=== PATIENT | male | born 1945 | race Caucasian/White ===

== ENCOUNTER 2018-10-20 11:09 | Inpatient (IN) ==
[~2018-10-20 11:09] MED LIST: Vancomycin 1,000 MG, Sodium Chloride IRRigation 1,000 ML IR ONE
[2018-10-20] MEDS ORDERED: Famotidine 20 MG/2 ML VIAL IVP ONE (11:29)
[2018-10-20] MEDS ORDERED: Acetaminophen IV 1,000 MG/100 ML INFUS..BTL IVPB ONE (11:29)
[2018-10-20] MEDS ORDERED: Ringers Solution, Lactated 1,000 ML IVC SCH ×2 (11:30→12:45)
--- NOTE | 2018-10-20 11:43 | Anesthesia Evaluation PreOp ---
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 (LE Weakness) Other Medical History: Denies Any Significant HX Anesthesia History: No Prior Anesthetic Complications Alcohol Use: none Drug use: none Medications and Allergies Aspirin 81 mg PO DAILY 02/10/15 [History] Clopidogrel [Plavix] 75 mg PO DAILY 02/10/15 [History] Lisinopril [Zestril] 10 mg PO DAILY 02/10/15 [History] Sertraline [Zoloft] 10 mg PO DAILY 02/10/15 [History] Simvastatin [Zocor] 20 mg PO DAILY 02/10/15 [History] Ipratropium/Albuterol Neb [Duoneb] 3 ml IH Q6HR PRN 09/30/18 [History] Loratadine/Pseudophed (12 HR) [Claritin D (12HR)] 1 each PO BID #24 tab.er.12h 09/30/18 [Rx] Metoprolol [Lopressor] 12.5 mg PO BID 09/30/18 [History] cephALEXin [Keflex] 500 mg PO QID #40 capsule 09/30/18 [Rx] Allergy/AdvReac Type Severity Reaction Status Date / Time codeine AdvReac Vomiting Verified 09/30/18 09:21 - Meds/Allergy Pre-op Review Medications Reviewed: Yes Allergies Reviewed: Yes Beta Blockers on Current Med List: Yes (Metioprolol this am) Anesthesia Results - Labs Laboratory Tests 10/19/18 10/19/18 10/19/18 09:04 09:04 09:04 Hgb 14.9 Hct 45.9 Plt Count 200 PT 11.5 INR 1.0 APTT 30.4 Sodium 141 Potassium 4.3 BUN 18 Creatinine 0.89 - Imaging EKG: report reviewed (SR) Additional studies: 2016 ECHO EF 60%, Stress Test 2-2018 negative for ischemia EF 67% Anesthesia Exam O2 Sat Height 1.78 m Weight 101.605 kg O2 Sat by Pulse Oximetry 95 Vital Signs Temp Pulse Resp BP Pulse Ox 97.4 F L 53 18 169/86 95 10/20/18 11:27 10/20/18 11:27 10/20/18 11:27 10/20/18 11:27 10/20/18 11:27 Height: 5'10 Weight: 224 lbs NPO (# of Hours): MN Pain Scale: 0 - HEENT Pupil (Motor): Pupils equal, EOMI Mallampati: III Denture Type: Upper: Complete (dentures) Oral Opening: Less than or equal to 3 - 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
[2018-10-20] MEDS ORDERED: Albuterol 2.5 MG/3 ML NEBULIZER IH ONE (12:40)
[2018-10-20] MEDS ORDERED: CeFAZolin Syr 2,000MG/20 ML 2,000 MG/20 ML SYRINGE IVPB ONE (12:40)
[2018-10-20] MEDS ORDERED: Lidocaine -MPF 2% 2 ML VIAL ONE ×2 (12:48→14:12)
[2018-10-20] MEDS ORDERED: *HR* Midazolam HCl 2 MG/2 ML VIAL ONE (12:48)
[2018-10-20] MEDS ORDERED: Neostigmine Methylsulfate 3 MG/3 ML SYRINGE ONE (12:48)
[2018-10-20] MEDS ORDERED: Ondansetron 4 MG/2 ML VIAL ONE ×2 (12:48→14:14)
[2018-10-20] MEDS ORDERED: Dexamethasone 4 MG/ML VIAL ONE (12:48)
[2018-10-20] MEDS ORDERED: *HR* FentaNYL (PF) 100 MCG/2 ML VIAL ONE (12:48)
[2018-10-20] MEDS ORDERED: *HR* Rocuronium Bromide 50 MG/5 ML VIAL ONE ×2 (12:48→14:16)
[2018-10-20] MEDS ORDERED: *HR* Propofol 200 MG/20 ML VIAL IVP ONE (12:49)
[2018-10-20] MEDS ORDERED: Lidocaine HCL 4 ML Topical Solution (Laryng-O-Jet Kit Sterile Pak) TP ONE ×2 (12:49→14:23)
--- NOTE | 2018-10-20 13:14 | History & Physical Report ---
Date of Encounter: 10/20/18 Time of Encounter: 12:45 24 Hour HP Update - Instructions Instructions: If the History and Physical is less than 30 days old and was completed prior to A.M. admission and or procedure and has NOT been updated on calendar day of procedure please complete this update prior to performing procedure. - Update Patient reports changes in Medical Condition: No Changes in examination, assessment, or condition: No Changes in Medication: No Preop tests/diagnostics Reviewed: Yes Surgery Remains Indicated: Yes Consent for Planned Operative Procedure(s) Verified: Yes - Pre-Operative Checklist Preoperative Checklist Indicated: Yes Prophylactic Antibiotic Ordered: Yes (vancomycin due to risk of MRSA) Home Medications Include Beta Jonathan: Yes Beta Jonathan Taken Today (Day of Surgery): Yes Beta Jonathan Taken Yesterday (Day Prior to Surgery): Yes Is VTE Prophylaxis Indicated?: Yes
[2018-10-20] MEDS ORDERED: *HR* Phenylephrine 10 MG/ML VIAL ONE (14:02)
[2018-10-20] MEDS ORDERED: *HR* Remifentanil 2 MG VIAL IVP ONE (14:02)
--- NOTE | 2018-10-20 14:12 | Anesthesia Procedures ---
Date of Encounter: 10/20/18 Time of Encounter: 13:46 Procedures: Anesthesia - Arterial Line Consent obtained: written consent Time out performed: Yes Sedation: Versed (mg): 1 Sedation: Fentanyl (mcg): 50 Supplemental Oxygen via Nasal Cannula (L/min): 2 Local Anesthetic: Lidocaine 1% Amount of Anesthetic used (mls): 0.5 Size (Gauge): 22 Length (inches): 1 3/4 Technique Used: direct puncture technique Post-Procedure: line taped into place Patient tolerated procedure: well Complications: none Site: Radial L Vitals: Vital Signs/O2 Sat/Glucose, Most Recent Temp Pulse Resp BP Pulse Ox 97.4 F L 55 17 135/81 95 10/20/18 11:27 10/20/18 14:07 10/20/18 14:07 10/20/18 14:07 10/20/18 14:07 Comments: Patient tolerated well.
[2018-10-20] MEDS ORDERED: *HR* Succinylcholine 200 MG/10 ML VIAL IVP ONE (14:16)
[2018-10-20] MEDS ORDERED: Bupivacaine-MPF 0.25% 10 ML VIAL ONE (14:18)
[2018-10-20] MEDS ORDERED: Protamine Sulfate 50 MG/5 ML VIAL IVP ONE (14:18)
[2018-10-20] MEDS ORDERED: Heparin 1,000 UNITS/500 mL 500 ML ONE (14:18)
[2018-10-20] MEDS ORDERED: *HR* Heparin 5,000 UNIT/ML VIAL ONE (14:19)
[2018-10-20] MEDS ORDERED: EPHEDrine 50 MG/ML VIAL ONE (15:19)
[2018-10-20] MEDS ORDERED: Calcium Gluconate 1,000 MG/10 ML VIAL ONE (15:30)
[2018-10-20] MEDS ORDERED: *HR* Remifentanil 1 MG VIAL IVP ONE (17:16)
--- NOTE | 2018-10-20 18:57 | Operative Note ---
Date of procedure: 10/20/18 Pre-op diagnosis: Symptomatic 80-99% Left internal carotid artery stenosis Post-op diagnosis: same Complications: None Anesthesia: MIRIAMA Surgeon: Kash Walters Was there an senior assistant manager present: No Estimated blood loss (cc): 50 Specimen: Left carotid plaque Condition: stable Disposition: PACU Procedure in Detail: Indications: The patient is a 73-year-old male with a presented with recurrent left hemispheric transient ischemic attacks. The patient was found have an 80- 99% left internal carotid artery stenosis. A left carotid endarterectomy was recommended to reduce his risk of cerebrovascular accident. Procedure: The patient was identified in the preoperative area. The risks, benefits, and alternatives of the procedure were discussed and all questions were answered. The patient was then taken to the operating room and placed in supine position on the operating table. After the induction of general endotracheal anesthesia, the patient was cleaned and draped in normal sterile fashion. A longitudinal incision was made anterior to the left sternocleidomastoid muscle. Hemostasis was obtained via electrocautery. Through a process of blunt, sharp, and electrocautery dissection, the platysma was traversed and the jugular vein was identified. The facial vein was dissected, clamped, divided and ligated with a 2-0 silk suture ligature. The jugular vein was retracted to expose the carotid bifurcation. The patient received 3000 units of heparin intravenously at this time. Proximal dissection of the common and external carotid arteries were performed circumferentially. Dissection of the internal carotid was performed circumferentially. Vessels loops were passed around the internal and external carotid and an umbilical tape was passed from the common carotid artery. The patient received an additional 2000 units of heparin intravenously. Additional heparin was given throughout the procedure to maintain adequate anticoagulation. After waiting adequate time for the heparin to circulate, the vessels were occluded and a longitudinal arteriotomy was made into the common carotid artery and extended into the internal carotid beyond the plaque. The plaque was long, extended distally and was heavily calcified. Vigorous pulsatile retrograde flow was noted from the internal carotid artery upon release of the vessel loop. Due to the rapid pulsatile retrograde flow, no shunt was placed. A dental [place] was then used to perform a standard endarterectomy. Proximal and distal endpoints were inspected. No elevated flaps were noted. A Hemashield patch was cut to fit the defect and sutured in place with running 6-0 Prolene. Prior to completing the closure, each vessel was flushed and then reoccluded. Heparinized saline was infused into the lumen. The patch was completed. Flow was restored in the external carotid artery, followed the common carotid artery, lastly the internal carotid artery was opened. A low resistance arterialized signal was present within the internal carotid artery beyond the patch. Thrombin and Gelfoam were used to aid in hemostasis. Meticulous hemostasis was obtained throughout the wound with electrocautery. Platelet rich and platelet poor plasma were infused into the wounds. The sternocleidomastoid was reapproximated with interrupted 3-0 Vicryl. Platelet rich and platelet poor plasma were infused into the wound. A TLS drain was brought through a separate stab incision and sutured in place with 0 silk suture. The platysma was reapproximated with running 3-0 Vicryl. Local anesthetic was infused in the skin. A 3-0 Monocryl was used to reapproximate the skin. A sterile dressing was applied. The patient was extubated, taken to the recovery room in stable condition.
--- NOTE | 2018-10-20 19:07 | Anesthesia Evaluation Post Op ---
Date of Encounter: 10/20/18 Time of Encounter: 19:06 - Discharge PostOp Status: Transfer Patient to floor (Patient's vital signs have been reviewed. Patient is stable postoperatively and has adequately recovered from anesthesia. Patient is determined to have stable airway patency and respiratory function including respiratory rate and oxygen saturation. Patient has a stable heart rate, blood pressure and adequate hydration. Patients mental status is acceptable. Patients temperature is appropriate. Pain and nausea are adequately controlled)
[2018-10-20] MEDS ORDERED: Acetaminophen 325 MG TABLET PO PRN (21:01)
[2018-10-20] MEDS ORDERED: *HR* Labetalol 20 MG/4 ML SYRINGE IVP PRN (21:01)
[2018-10-20] MEDS ORDERED: Naloxone 0.4 MG/ML INJ IVP PRN (21:01)
[2018-10-20] MEDS ORDERED: *HR* Promethazine 25 MG/ML VIAL IVP PRN (21:01)
[2018-10-20] MEDS ORDERED: *HR* OxyCODONE Immed Rel 5 MG TABLET PO PRN (21:01)
[2018-10-20] MEDS ORDERED: 0.9 % Sodium Chloride 1,000 ML IVC SCH (21:01)
[2018-10-20] MEDS: *HR* Metoprolol 5 MG/5 ML VIAL IVP SCH (21:57)
[2018-10-20] MEDS: *HR* HYDROcodone/Acet 5/325 mg TABLET PO PRN (22:14)
[2018-10-20] MEDS: Budesonide/Formoterol 160/4.5 1 PUFF INH IH SCH (22:44)
[2018-10-21] MEDS: *HR* Metoprolol 5 MG/5 ML VIAL IVP SCH ×2 (03:23→08:31)
[2018-10-21] MEDS ORDERED: *HR* Heparin 5,000 UNIT/ML VIAL SQ SCH ×2 (06:00)
--- NOTE | 2018-10-21 06:21 | Discharge Summary ---
Orders not resulted at time of discharge: Pending orders 10/20/18 18:44 Surgical Pathology [PTH] Routine Date of Encounter: 10/21/18 Time of Encounter: 07:25 - Discharge Diagnosis (1) Carotid stenosis, left Priority: Primary Status: Chronic Comments: Patient is postoperative day #1 after a left carotid endarterectomy. He is tolerating a diet. He has no hematoma. His incision is healing well. He has no neurologic deficits. He will be discharged today. (2) CAD in [place] artery Priority: Secondary Status: Chronic (3) Mixed hyperlipidemia Priority: Secondary Status: Chronic (4) Essential hypertension Priority: Secondary Status: Chronic - Hospital Course Hospital course: Mr. Chino is a 73 year old male with history of hypertension hyperlipidemia and coronary artery disease. He was found have symptomatic left internal carotid artery stenosis manifested by multiple transient ischemic attacks. He was admitted and underwent a left carotid endarterectomy. He tolerated the procedure well. On postoperative day #1 he was alert no neurologic deficits. He is tolerating a diet. His incision was healing well. He was discharged in stable condition without complication. - Time Spent with Patient Total time spent providing and/or coordinating discharge services: - Discharge Medications Prescriptions: New HYDROcodone/Acet 5/325 mg [Ullin 5-325 mg] 1 tab PO Q6HR PRN 5 Days #20 tablet PRN Reason: postoperative pain Continued Simvastatin [Zocor] 1 tab PO HS Sertraline [Zoloft] 150 mg PO DAILY Budesonide/Formoterol 160/4.5 [Symbicort 160/4.5] 2 puff IH BID Albuterol Sulfate [Ventolin Hfa] 2 puff IH Q6H PRN PRN Reason: Shortness Of Breath Clopidogrel [Plavix] 75 mg PO DAILY Aspirin 81 mg PO DAILY Metoprolol [Lopressor] 12.5 mg PO BID Home Medications: Aspirin 81 mg PO DAILY 02/10/15 [History] Clopidogrel [Plavix] 75 mg PO DAILY 02/10/15 [History] Metoprolol [Lopressor] 12.5 mg PO BID 09/30/18 [History] Albuterol Sulfate [Ventolin Hfa] 2 puff IH Q6H PRN 10/20/18 [History] Budesonide/Formoterol 160/4.5 [Symbicort 160/4.5] 2 puff IH BID 10/20/18 [History] Sertraline [Zoloft] 150 mg PO DAILY 10/20/18 [History] Simvastatin [Zocor] 1 tab PO HS 10/20/18 [History] HYDROcodone/Acet 5/325 mg [Ullin 5-325 mg] 1 tab PO Q6HR PRN 5 Days #20 tablet 10/21/18 [Rx] Allergies/Adverse Reactions: Allergy/AdvReac Type Severity Reaction Status Date / Time codeine AdvReac Vomiting Verified 10/20/18 12:05 Date of admission: 10/20/18 19:56 Primary care physician: Varun Olvera DO Procedure(s) Performed: Left carotid endarterectomy Discharging clinician: Kash Walters Anticipated date of discharge: 10/21/18 Exam Vital Signs, Last 4 Hours Temp Pulse Resp BP Pulse Ox 10/21/18 03:39 97.9 F 56 18 98/48 95 General: Present: Conversant HEENT: Present: Pupils equal Neck: Present: Other (Incision clean, dry and intact without erythema or drainage, no hematoma) Cardiac: Present: Reg Rate and Rhythm Lungs: Present: Normal Breath Sounds Neuro: Present: Alert and responsive, No focal deficits noted Abdomen: Present: Soft Vascular: Present: Normal capillary refill Skin: Present: No rashes noted on visualized skin - Patient Status Disposition: Home, Self-Care Condition: Good Functional capacity at discharge: independent ambulation Overall status at discharge: patient is back to baseline - Discharge Instructions Follow Up With: Raina Cabral CNP [Advanced Practice Nurse] - 10/26/18 11:00 am Kash Walters MD [Partnered Physician] - 11/18/18 1:00 pm Additional Instructions: May remove bandage and shower on 10/22/2018. Wash wound gently and pat to dry. No driving for [address] Walters at [phone] with questions or concerns.
[2018-10-21] MEDS: Budesonide/Formoterol 160/4.5 1 PUFF INH IH SCH (07:55)
[2018-10-21] MEDS: *HR* HYDROcodone/Acet 5/325 mg TABLET PO PRN (08:30)
[2018-10-21] MEDS ORDERED: Aspirin 81 MG TAB.CHEW PO SCH (09:00)
[2018-10-21 11:29] VITALS: BP 124/67
== END 2018-10-21 12:43 | disposition home or self-care (01) | DRG 37 ==
LOC: SAMDAY 11:09 → 2NNU 19:56
PROVIDERS: ADMIT Surgery; ATTEND Surgery

== ENCOUNTER 2021-03-08 21:18 | Inpatient (IN) ==
[2021-03-09] MEDS ORDERED: Ondansetron 4 MG/2 ML VIAL IVP PRN (00:36)
[2021-03-09] MEDS ORDERED: Naloxone 0.4 MG/ML INJ IVP PRN (00:36)
[2021-03-09] MEDS ORDERED: Perflutren Lipid Microsphere 1.3 ML in 0.9 % Sodium Chloride 8.7 ML IVP PRN (00:40)
[2021-03-09] MEDS ORDERED: *HR* Heparin 5,000 UNIT/ML VIAL IVP PRN ×2 (01:21)
[2021-03-09] MEDS ORDERED: Heparin 25,000UNIT/250ML 1/2NS 25,000 UNIT/250 ML IV.SOLN IVC SCH (01:30)
[2021-03-09 01:48] LABS: VBG HCO3 27 mEq/L (21-27); VBG PCO2 39 mmHg (41-51); VBG PH 7.44 pH Units (7.32-7.42); VBG PO2 117 mmHg (25-50)
[2021-03-09 01:49] LABS: Basophils % 0.1 %; Hematocrit 37.7 % (37.5-50.1); Hemoglobin 12.1 g/dL (12.9-16.9); Immature Granulocytes % 0.6 % (0-4); Lymphocytes # 0.6 K/mcL (0.6-4.6); Mean Corpuscular HGB Conc 32.1 g/dL (31.6-35.5); Mean Corpuscular Hemoglobin 28.3 pg (28.0-33.3); Mean Corpuscular Volume 88.1 fL (83.0-100.0); Mean Platelet Volume 10.1 fL (9.4-12.4); Monocytes # 0.3 K/mcL (0.0-1.3); Monocytes % 2.5 %; Neutrophils # 10.4 K/mcL (1.6-8.9); Platelet Count 215 K/mcL (140-400); Red Blood Count 4.28 M/mcL (4.19-5.50); Red Cell Distribution Width 13.7 % (11.5-14.5); Segmented Neutrophils % 91.8 %; White Blood Count 11.3 K/mcL (4.3-11.1)
[2021-03-09 01:56] LABS: Heparin anti-factor XA UFH 0.76 IU/mL (0.30-0.70); INR 1.3; Prothrombin Time 14.3 Seconds (9.4-12.1)
[2021-03-09 02:22] LABS: Troponin I 0.09 ng/mL (< 0.04)
[2021-03-09 02:38] LABS: BUN/Creatinine Ratio 20 (6-26); Blood Urea Nitrogen 19 mg/dL (8-23); C-Reactive Protein 233 mg/L (Less than 10); Calcium 8.2 mg/dL (8.6-10.3); Carbon Dioxide 25 mEq/L (23-29); Chloride 109 mEq/L (98-107); Cholesterol 62 mg/dL (< 200); Creatine Kinase 49 Units/L (30-223); Glucose 172 mg/dL (70-105); HDL Cholesterol 21 mg/dL (40-59); LDL Cholesterol,Calculated 30 mg/dL (< 100); Lactate Dehydrogenase 266 Units/L (140-271); Magnesium 1.9 mg/dL (1.6-2.6); Osmolality,Calculated 296 (280-300); Phosphorous 3.7 mg/dL (2.7-4.5); Potassium 3.4 mEq/L (3.5-5.1); Sodium 140 mEq/L (136-145); Thyroid Stimulating Hormone 0.624 mcIU/mL (0.340-5.600); Triglycerides 57 mg/dL (< 150); eGFR For African Americans > 60 (> 60); eGFR For Non-African Americans > 60 (> 60)
[2021-03-09 02:39] LABS: D-Dimer 611 ng/mLFEU (0-500); Fibrinogen 711 mg/dL (169-393)
[2021-03-09 02:57] LABS: Ferritin 148 ng/mL (20-250)
[2021-03-09] MEDS ORDERED: *HR* Metoprolol 5 MG/5 ML VIAL IVP SCH (06:00)
[2021-03-09 08:28] LABS: Bilirubin,Urine Negative (Negative); Blood,Urine Moderate (Negative); Clarity,Urine Clear (Clear); Color,Urine Yellow (Yellow); Glucose,Urine (UA) Normal (Normal); Hyaline Casts,Urine Moderate per lpf (None Seen); Ketones,Urine Negative (Negative); Leukocyte Esterase,Urine Negative (Negative); Mucus,Urine Few per lpf (None-Few); Nitrite,Urine Negative (Negative); Protein,Urine 70 mg/dL (Neg-Trace); RBC,Urine 50-100 per hpf (0-3); Specific Gravity,Urine 1.022 (1.010-1.025); Urobilinogen,Urine Normal (Normal); WBC,Urine 0-3 per hpf (0-3)
[2021-03-09] MEDS: Azithromycin 500 MG in 0.9 % Sodium Chloride 250 ML IVPB SCH (08:35)
[2021-03-09] MEDS: cefTRIAXone 1,000 MG in 0.9 % Sodium Chloride Mini Bag 100 ML IVPB SCH (08:38)
[2021-03-09] MEDS ORDERED: Saliva Stimulant 44.3ml BOTTLE PO PRN (10:29)
[2021-03-09] MEDS: Dexamethasone Sodium Phos/PF 10 MG/ML VIAL IVP SCH (11:12)
[2021-03-09] MEDS: Pantoprazole 40 MG VIAL IVP SCH (12:36)
[2021-03-09] MEDS: Acetaminophen 325 MG TABLET PO PRN (16:29)
[2021-03-10] MEDS: Acetaminophen 325 MG TABLET PO PRN ×2 (00:02→12:57)
[2021-03-10] MEDS ORDERED: Menthol 1 EACH LOZENGE PO PRN (03:16)
[2021-03-10 06:41] LABS: Basophils % 0.1 %; Hematocrit 35.7 % (37.5-50.1); Hemoglobin 11.3 g/dL (12.9-16.9); Immature Granulocytes % 0.7 % (0-4); Lymphocytes # 0.8 K/mcL (0.6-4.6); Lymphocytes % 5.1 %; Mean Corpuscular HGB Conc 31.7 g/dL (31.6-35.5); Mean Corpuscular Hemoglobin 27.8 pg (28.0-33.3); Mean Corpuscular Volume 87.9 fL (83.0-100.0); Mean Platelet Volume 10.4 fL (9.4-12.4); Monocytes # 0.9 K/mcL (0.0-1.3); Monocytes % 5.1 %; Neutrophils # 14.8 K/mcL (1.6-8.9); Platelet Count 252 K/mcL (140-400); Red Blood Count 4.06 M/mcL (4.19-5.50); Red Cell Distribution Width 13.9 % (11.5-14.5); White Blood Count 16.6 K/mcL (4.3-11.1)
[2021-03-10 06:46] LABS: BUN/Creatinine Ratio 37 (6-26); Blood Urea Nitrogen 35 mg/dL (8-23); Calcium 8.5 mg/dL (8.6-10.3); Carbon Dioxide 29 mEq/L (23-29); Chloride 107 mEq/L (98-107); Glucose 130 mg/dL (70-105); Osmolality,Calculated 302 (280-300); Sodium 141 mEq/L (136-145); eGFR For African Americans > 60 (> 60); eGFR For Non-African Americans > 60 (> 60)
[2021-03-10] MEDS: Dexamethasone Sodium Phos/PF 10 MG/ML VIAL IVP SCH (08:12)
[2021-03-10] MEDS: Pantoprazole 40 MG VIAL IVP SCH (08:12)
[2021-03-10] MEDS: Azithromycin 500 MG in 0.9 % Sodium Chloride 250 ML IVPB SCH (08:13)
[2021-03-10] MEDS: cefTRIAXone 1,000 MG in 0.9 % Sodium Chloride Mini Bag 100 ML IVPB SCH (08:13)
[2021-03-11] MEDS: Acetaminophen 325 MG TABLET PO PRN (00:42)
[2021-03-11 06:31] LABS: Basophils % 0.1 %; Hematocrit 36.6 % (37.5-50.1); Hemoglobin 11.8 g/dL (12.9-16.9); Immature Granulocytes % 0.9 % (0-4); Lymphocytes # 1.1 K/mcL (0.6-4.6); Mean Corpuscular HGB Conc 32.2 g/dL (31.6-35.5); Mean Corpuscular Volume 86.9 fL (83.0-100.0); Mean Platelet Volume 10.3 fL (9.4-12.4); Monocytes % 5.5 %; Neutrophils # 16.2 K/mcL (1.6-8.9); Platelet Count 287 K/mcL (140-400); Red Blood Count 4.21 M/mcL (4.19-5.50); Red Cell Distribution Width 14.1 % (11.5-14.5); Segmented Neutrophils % 87.5 %; White Blood Count 18.4 K/mcL (4.3-11.1)
[2021-03-11 06:46] LABS: BUN/Creatinine Ratio 39 (6-26); Blood Urea Nitrogen 31 mg/dL (8-23); Calcium 8.4 mg/dL (8.6-10.3); Carbon Dioxide 28 mEq/L (23-29); Chloride 108 mEq/L (98-107); Glucose 110 mg/dL (70-105); Osmolality,Calculated 301 (280-300); Sodium 142 mEq/L (136-145); eGFR For African Americans > 60 (> 60); eGFR For Non-African Americans > 60 (> 60)
[2021-03-11] MEDS: cefTRIAXone 1,000 MG in 0.9 % Sodium Chloride Mini Bag 100 ML IVPB SCH (08:09)
[2021-03-11] MEDS: Dexamethasone Sodium Phos/PF 10 MG/ML VIAL IVP SCH (08:09)
[2021-03-11] MEDS: Azithromycin 500 MG in 0.9 % Sodium Chloride 250 ML IVPB SCH (08:10)
[2021-03-11] MEDS: Pantoprazole 40 MG VIAL IVP SCH (08:10)
[2021-03-11] MEDS ORDERED: Ipratropium 1 PUFF INHALER IH ONE (11:44)
[2021-03-11] MEDS: Ipratropium 1 PUFF INHALER IH SCH ×4 (11:50→23:31)
[2021-03-11] MEDS: Dexmedetomidine HCl 400 MCG/100 ML MLS IVC SCH (12:58)
[2021-03-11 14:30] LABS: Fibrinogen 688 mg/dL (169-393)
[2021-03-11 14:31] LABS: D-Dimer 3821 ng/mLFEU (0-500)
[2021-03-11 16:23] LABS: Bilirubin,Urine Negative (Negative); Blood,Urine Moderate (Negative); Clarity,Urine Clear (Clear); Color,Urine Yellow (Yellow); Glucose,Urine (UA) Normal (Normal); Ketones,Urine Negative (Negative); Leukocyte Esterase,Urine Negative (Negative); Mucus,Urine Few per lpf (None-Few); Nitrite,Urine Negative (Negative); Protein,Urine 100 mg/dL (Neg-Trace); RBC,Urine TNTC per hpf (0-3); Specific Gravity,Urine > 1.030 (1.010-1.025); Squamous Epithelial Cell,Urine Few per hpf (None-Few); Urobilinogen,Urine Normal (Normal)
[2021-03-11] MEDS: *HR* Heparin 5,000 UNIT/ML VIAL SQ SCH (21:31)
[2021-03-12] MEDS: Ipratropium 1 PUFF INHALER IH SCH ×6 (03:43→23:57)
[2021-03-12] MEDS: *HR* Heparin 5,000 UNIT/ML VIAL SQ SCH ×3 (04:39→20:21)
[2021-03-12] MEDS ORDERED: Saline Nasal Spray 44 ML BOTTLE NS PRN (08:17)
[2021-03-12] MEDS: Dexmedetomidine HCl 400 MCG/100 ML MLS IVC SCH ×2 (08:20→18:06)
[2021-03-12] MEDS: Acetaminophen 325 MG TABLET PO PRN (08:46)
[2021-03-12] MEDS: Dexamethasone Sodium Phos/PF 10 MG/ML VIAL IVP SCH (08:47)
[2021-03-12] MEDS: cefTRIAXone 1,000 MG in 0.9 % Sodium Chloride Mini Bag 100 ML IVPB SCH (08:49)
[2021-03-12] MEDS: Pantoprazole 40 MG VIAL IVP SCH (09:01)
[2021-03-12 09:11] LABS: Basophils % 0.1 %; Hematocrit 36.8 % (37.5-50.1); Hemoglobin 11.7 g/dL (12.9-16.9); Immature Granulocytes % 1.4 % (0-4); Lymphocytes % 7.1 %; Mean Corpuscular HGB Conc 31.8 g/dL (31.6-35.5); Mean Corpuscular Hemoglobin 28.1 pg (28.0-33.3); Mean Corpuscular Volume 88.2 fL (83.0-100.0); Mean Platelet Volume 10.8 fL (9.4-12.4); Monocytes # 0.9 K/mcL (0.0-1.3); Monocytes % 6.7 %; Neutrophils # 11.8 K/mcL (1.6-8.9); Platelet Count 257 K/mcL (140-400); Red Blood Count 4.17 M/mcL (4.19-5.50); Red Cell Distribution Width 14.1 % (11.5-14.5); Segmented Neutrophils % 84.7 %; White Blood Count 13.9 K/mcL (4.3-11.1)
[2021-03-12 09:33] LABS: BUN/Creatinine Ratio 41 (6-26); Blood Urea Nitrogen 34 mg/dL (8-23); Calcium 8.4 mg/dL (8.6-10.3); Carbon Dioxide 27 mEq/L (23-29); Chloride 106 mEq/L (98-107); Glucose 105 mg/dL (70-105); Osmolality,Calculated 298 (280-300); Sodium 140 mEq/L (136-145); eGFR For African Americans > 60 (> 60); eGFR For Non-African Americans > 60 (> 60)
[2021-03-12] MEDS: Azithromycin 500 MG in 0.9 % Sodium Chloride 250 ML IVPB SCH (11:07)
[2021-03-12] MEDS ORDERED: Ketorolac 30 MG/ML VIAL IVP ONE (12:58)
[2021-03-13] MEDS: Dexmedetomidine HCl 400 MCG/100 ML MLS IVC SCH ×2 (03:47→13:28)
[2021-03-13] MEDS: Ipratropium 1 PUFF INHALER IH SCH ×6 (04:04→20:56)
[2021-03-13] MEDS: *HR* Heparin 5,000 UNIT/ML VIAL SQ SCH ×3 (05:30→20:45)
[2021-03-13 06:18] LABS: Basophils % 0.1 %; Hematocrit 36.6 % (37.5-50.1); Hemoglobin 11.8 g/dL (12.9-16.9); Immature Granulocytes % 1.7 % (0-4); Lymphocytes # 0.9 K/mcL (0.6-4.6); Lymphocytes % 6.3 %; Mean Corpuscular HGB Conc 32.2 g/dL (31.6-35.5); Mean Corpuscular Hemoglobin 28.4 pg (28.0-33.3); Mean Corpuscular Volume 88.2 fL (83.0-100.0); Mean Platelet Volume 10.7 fL (9.4-12.4); Neutrophils # 11.8 K/mcL (1.6-8.9); Platelet Count 257 K/mcL (140-400); Red Blood Count 4.15 M/mcL (4.19-5.50); Red Cell Distribution Width 13.6 % (11.5-14.5); Segmented Neutrophils % 84.9 %; White Blood Count 13.8 K/mcL (4.3-11.1)
[2021-03-13 06:56] LABS: BUN/Creatinine Ratio 37 (6-26); Blood Urea Nitrogen 30 mg/dL (8-23); Calcium 8.3 mg/dL (8.6-10.3); Carbon Dioxide 27 mEq/L (23-29); Chloride 107 mEq/L (98-107); Glucose 103 mg/dL (70-105); Osmolality,Calculated 296 (280-300); Potassium 4.1 mEq/L (3.5-5.1); Sodium 140 mEq/L (136-145); eGFR For African Americans > 60 (> 60); eGFR For Non-African Americans > 60 (> 60)
[2021-03-13] MEDS: Dexamethasone Sodium Phos/PF 10 MG/ML VIAL IVP SCH (09:51)
[2021-03-13] MEDS: Pantoprazole 40 MG VIAL IVP SCH (09:51)
[2021-03-13] MEDS: Azithromycin 500 MG in 0.9 % Sodium Chloride 250 ML IVPB SCH (09:52)
[2021-03-13] MEDS: cefTRIAXone 1,000 MG in 0.9 % Sodium Chloride Mini Bag 100 ML IVPB SCH (09:52)
[2021-03-13 22:19] LABS: Adenovirus Not Detected (Not Detect); Coronavirus 229E Not Detected (Not Detect); Coronavirus HKU1 Not Detected (Not Detect); Coronavirus NL63 Not Detected (Not Detect); Coronavirus OC43 Not Detected (Not Detect)
[2021-03-13 22:21] LABS: Bordetella Pertussis Not Detected (Not Detect); Chlamydophila pneumoniae Not Detected (Not Detect); Human Metapneumovirus Not Detected (Not Detect); Human Rhinovirus/Enterovirus Not Detected (Not Detect); Influenza A Subtype 2009 H1 Not Detected (Not Detect); Influenza B Not Detected (Not Detect); Mycoplasma pneumoniae Not Detected (Not Detect); Parainfluenza Virus 1 Not Detected (Not Detect); Parainfluenza Virus 2 Not Detected (Not Detect); Parainfluenza Virus 3 Not Detected (Not Detect); Parainfluenza Virus 4 Not Detected (Not Detect); Respiratory Syncytial Virus Not Detected (Not Detect); SARS-CoV-2 DETECTED (Not Detect)
[2021-03-14] MEDS: Artificial Tears SOLN 15 ML BOTTLE BOTH EYES SCH ×5 (00:08→21:51)
[2021-03-14] MEDS: Dexmedetomidine HCl 400 MCG/100 ML MLS IVC SCH ×3 (00:12→22:23)
[2021-03-14] MEDS: Ipratropium 1 PUFF INHALER IH SCH ×6 (00:23→20:22)
[2021-03-14 00:32] LABS: Basophils % 0.2 %; Hemoglobin 11.7 g/dL (12.9-16.9); Immature Granulocytes % 1.7 % (0-4); Lymphocytes # 0.7 K/mcL (0.6-4.6); Lymphocytes % 4.2 %; Mean Corpuscular HGB Conc 30.8 g/dL (31.6-35.5); Mean Corpuscular Hemoglobin 27.1 pg (28.0-33.3); Mean Platelet Volume 10.8 fL (9.4-12.4); Monocytes # 1.1 K/mcL (0.0-1.3); Monocytes % 6.8 %; Neutrophils # 14.1 K/mcL (1.6-8.9); Platelet Count 226 K/mcL (140-400); Red Blood Count 4.32 M/mcL (4.19-5.50); Red Cell Distribution Width 13.7 % (11.5-14.5); Segmented Neutrophils % 87.1 %; White Blood Count 16.2 K/mcL (4.3-11.1)
[2021-03-14 04:44] LABS: BUN/Creatinine Ratio 44 (6-26); Blood Urea Nitrogen 35 mg/dL (8-23); Calcium 8.5 mg/dL (8.6-10.3); Carbon Dioxide 23 mEq/L (23-29); Chloride 107 mEq/L (98-107); Glucose 106 mg/dL (70-105); Osmolality,Calculated 300 (280-300); Potassium 4.5 mEq/L (3.5-5.1); Sodium 141 mEq/L (136-145); eGFR For African Americans > 60 (> 60); eGFR For Non-African Americans > 60 (> 60)
[2021-03-14] MEDS: *HR* Heparin 5,000 UNIT/ML VIAL SQ SCH ×3 (05:40→21:50)
[2021-03-14] MEDS: cefTRIAXone 1,000 MG in 0.9 % Sodium Chloride Mini Bag 100 ML IVPB SCH (08:43)
[2021-03-14] MEDS: Dexamethasone Sodium Phos/PF 10 MG/ML VIAL IVP SCH (08:44)
[2021-03-14] MEDS: Azithromycin 500 MG in 0.9 % Sodium Chloride 250 ML IVPB SCH (08:44)
[2021-03-14] MEDS: Pantoprazole 40 MG VIAL IVP SCH (09:29)
[2021-03-15] MEDS: Ipratropium 1 PUFF INHALER IH SCH ×7 (00:01→23:59)
[2021-03-15 03:20] LABS: Basophils % 0.2 %; Hematocrit 33.4 % (37.5-50.1); Hemoglobin 10.7 g/dL (12.9-16.9); Immature Granulocytes % 2.2 % (0-4); Lymphocytes # 0.6 K/mcL (0.6-4.6); Lymphocytes % 4.1 %; Mean Corpuscular Hemoglobin 28.2 pg (28.0-33.3); Mean Corpuscular Volume 88.1 fL (83.0-100.0); Mean Platelet Volume 11.4 fL (9.4-12.4); Monocytes # 0.8 K/mcL (0.0-1.3); Monocytes % 5.6 %; Neutrophils # 13.1 K/mcL (1.6-8.9); Platelet Count 183 K/mcL (140-400); Red Blood Count 3.79 M/mcL (4.19-5.50); Red Cell Distribution Width 13.9 % (11.5-14.5); Segmented Neutrophils % 87.9 %; White Blood Count 14.9 K/mcL (4.3-11.1)
[2021-03-15 03:34] LABS: BUN/Creatinine Ratio 40 (6-26); Blood Urea Nitrogen 32 mg/dL (8-23); Calcium 8.1 mg/dL (8.6-10.3); Carbon Dioxide 28 mEq/L (23-29); Chloride 106 mEq/L (98-107); Glucose 127 mg/dL (70-105); Osmolality,Calculated 292 (280-300); Potassium 4.4 mEq/L (3.5-5.1); Sodium 137 mEq/L (136-145); eGFR For African Americans > 60 (> 60); eGFR For Non-African Americans > 60 (> 60)
[2021-03-15] MEDS: *HR* Heparin 5,000 UNIT/ML VIAL SQ SCH ×3 (05:38→20:52)
[2021-03-15] MEDS: Dexmedetomidine HCl 400 MCG/100 ML MLS IVC SCH ×2 (07:24→17:35)
[2021-03-15] MEDS: cefTRIAXone 1,000 MG in 0.9 % Sodium Chloride Mini Bag 100 ML IVPB SCH (08:02)
[2021-03-15] MEDS: Pantoprazole 40 MG VIAL IVP SCH (08:02)
[2021-03-15] MEDS: Azithromycin 500 MG in 0.9 % Sodium Chloride 250 ML IVPB SCH (08:03)
[2021-03-15] MEDS: Dexamethasone Sodium Phos/PF 10 MG/ML VIAL IVP SCH (08:05)
[2021-03-15] MEDS: Artificial Tears SOLN 15 ML BOTTLE BOTH EYES SCH ×4 (08:05→20:52)
[2021-03-16] MEDS: Dexmedetomidine HCl 400 MCG/100 ML MLS IVC SCH ×2 (02:37→12:46)
[2021-03-16] MEDS: Ipratropium 1 PUFF INHALER IH SCH ×6 (03:37→23:50)
[2021-03-16] MEDS: *HR* Heparin 5,000 UNIT/ML VIAL SQ SCH ×3 (04:55→21:38)
[2021-03-16 05:22] LABS: Basophils % 0.2 %; Eosinophils % 0.1 %; Hematocrit 34.9 % (37.5-50.1); Hemoglobin 11.2 g/dL (12.9-16.9); Immature Granulocytes % 2.6 % (0-4); Lymphocytes % 4.2 %; Mean Corpuscular HGB Conc 32.1 g/dL (31.6-35.5); Mean Corpuscular Hemoglobin 28.3 pg (28.0-33.3); Mean Corpuscular Volume 88.1 fL (83.0-100.0); Mean Platelet Volume 11.3 fL (9.4-12.4); Monocytes % 5.5 %; Platelet Count 181 K/mcL (140-400); Red Blood Count 3.96 M/mcL (4.19-5.50); Red Cell Distribution Width 13.9 % (11.5-14.5); Segmented Neutrophils % 87.4 %
[2021-03-16 05:23] LABS: Lymphocytes # 0.7 K/mcL (0.6-4.6); Monocytes # 0.9 K/mcL (0.0-1.3)
[2021-03-16 05:41] LABS: BUN/Creatinine Ratio 40 (6-26); Blood Urea Nitrogen 34 mg/dL (8-23); Calcium 8.4 mg/dL (8.6-10.3); Carbon Dioxide 28 mEq/L (23-29); Chloride 105 mEq/L (98-107); Glucose 99 mg/dL (70-105); Osmolality,Calculated 292 (280-300); Potassium 4.6 mEq/L (3.5-5.1); Sodium 137 mEq/L (136-145); eGFR For African Americans > 60 (> 60); eGFR For Non-African Americans > 60 (> 60)
[2021-03-16] MEDS: Dexamethasone Sodium Phos/PF 10 MG/ML VIAL IVP SCH (09:57)
[2021-03-16] MEDS: cefTRIAXone 1,000 MG in 0.9 % Sodium Chloride Mini Bag 100 ML IVPB SCH (09:58)
[2021-03-16] MEDS: Azithromycin 500 MG in 0.9 % Sodium Chloride 250 ML IVPB SCH (10:05)
[2021-03-16] MEDS: Pantoprazole 40 MG VIAL IVP SCH (10:05)
[2021-03-16] MEDS: Artificial Tears SOLN 15 ML BOTTLE BOTH EYES SCH ×4 (10:08→20:57)
[2021-03-16] MEDS: Acetaminophen 325 MG TABLET PO PRN (16:06)
[2021-03-17] MEDS: Dexmedetomidine HCl 400 MCG/100 ML MLS IVC SCH ×3 (00:40→21:00)
[2021-03-17 02:16] LABS: Basophils % 0.2 %; Hematocrit 34.5 % (37.5-50.1); Hemoglobin 10.7 g/dL (12.9-16.9); Lymphocytes # 0.5 K/mcL (0.6-4.6); Lymphocytes % 3.8 %; Mean Corpuscular Hemoglobin 27.9 pg (28.0-33.3); Mean Corpuscular Volume 90.1 fL (83.0-100.0); Mean Platelet Volume 11.7 fL (9.4-12.4); Monocytes # 0.7 K/mcL (0.0-1.3); Monocytes % 5.1 %; Neutrophils # 11.8 K/mcL (1.6-8.9); Platelet Count 172 K/mcL (140-400); Red Blood Count 3.83 M/mcL (4.19-5.50); Red Cell Distribution Width 14.1 % (11.5-14.5); Segmented Neutrophils % 88.9 %; White Blood Count 13.2 K/mcL (4.3-11.1)
[2021-03-17 02:35] LABS: BUN/Creatinine Ratio 44 (6-26); Blood Urea Nitrogen 33 mg/dL (8-23); Carbon Dioxide 25 mEq/L (23-29); Chloride 103 mEq/L (98-107); Glucose 170 mg/dL (70-105); Osmolality,Calculated 289 (280-300); Potassium 4.8 mEq/L (3.5-5.1); Sodium 134 mEq/L (136-145); eGFR For African Americans > 60 (> 60); eGFR For Non-African Americans > 60 (> 60)
[2021-03-17] MEDS: Ipratropium 1 PUFF INHALER IH SCH ×6 (04:08→23:37)
[2021-03-17] MEDS: *HR* Heparin 5,000 UNIT/ML VIAL SQ SCH (05:23)
[2021-03-17] MEDS: cefTRIAXone 1,000 MG in 0.9 % Sodium Chloride Mini Bag 100 ML IVPB SCH (07:21)
[2021-03-17] MEDS: Artificial Tears SOLN 15 ML BOTTLE BOTH EYES SCH ×4 (07:21→19:35)
[2021-03-17] MEDS: Dexamethasone Sodium Phos/PF 10 MG/ML VIAL IVP SCH (07:22)
[2021-03-17] MEDS: Azithromycin 500 MG in 0.9 % Sodium Chloride 250 ML IVPB SCH (07:22)
[2021-03-17] MEDS: Pantoprazole 40 MG VIAL IVP SCH (07:22)
[2021-03-17] MEDS: Furosemide 40 MG/4 ML VIAL IVP SCH (12:04)
[2021-03-17] MEDS ORDERED: Acetaminophen IV 1,000 MG/100 ML BAG IVPB ONE (16:50)
[2021-03-18] MEDS: Ipratropium 1 PUFF INHALER IH SCH ×6 (04:17→23:58)
[2021-03-18] MEDS: *HR* Enoxaparin 40 MG/0.4 ML SYRINGE SQ SCH (04:56)
[2021-03-18] MEDS: Furosemide 40 MG/4 ML VIAL IVP SCH (08:45)
[2021-03-18] MEDS: Pantoprazole 40 MG VIAL IVP SCH (08:45)
[2021-03-18] MEDS: Dexamethasone Sodium Phos/PF 10 MG/ML VIAL IVP SCH (08:46)
[2021-03-18] MEDS: Artificial Tears SOLN 15 ML BOTTLE BOTH EYES SCH ×4 (08:46→22:01)
[2021-03-18 12:13] LABS: Albumin 2.7 g/dL (3.5-5.7); Albumin/Globulin Ratio 0.9 (1.1-2.2); Bilirubin,Direct 0.1 mg/dL (0.0-0.2); Bilirubin,Indirect 0.6 mg/dL (0.0-1.0); Bilirubin,Total 0.7 mg/dL (0.3-1.0); Globulin 3.1 g/dL (2.4-3.5); Total Protein 5.8 g/dL (6.4-8.9)
[2021-03-18] MEDS: Acetaminophen 325 MG TABLET PO PRN (12:21)
[2021-03-18] MEDS: Dexmedetomidine HCl 400 MCG/100 ML MLS IVC SCH ×2 (13:18→23:38)
[2021-03-19] MEDS: Ipratropium 1 PUFF INHALER IH SCH ×6 (04:15→23:33)
[2021-03-19 04:57] LABS: Hematocrit 35.1 % (37.5-50.1); Hemoglobin 11.5 g/dL (12.9-16.9); Mean Corpuscular HGB Conc 32.8 g/dL (31.6-35.5); Mean Corpuscular Hemoglobin 28.7 pg (28.0-33.3); Mean Corpuscular Volume 87.5 fL (83.0-100.0); Mean Platelet Volume 11.4 fL (9.4-12.4); Platelet Count 194 K/mcL (140-400); Red Blood Count 4.01 M/mcL (4.19-5.50); Red Cell Distribution Width 13.6 % (11.5-14.5); White Blood Count 11.7 K/mcL (4.3-11.1)
[2021-03-19 05:05] LABS: INR 1.4; Prothrombin Time 15.2 Seconds (9.4-12.1)
[2021-03-19 05:12] LABS: VBG HCO3 28 mEq/L (21-27); VBG PCO2 46 mmHg (41-51); VBG PH 7.39 pH Units (7.32-7.42); VBG PO2 51 mmHg (25-50)
[2021-03-19 05:17] LABS: BUN/Creatinine Ratio 51 (6-26); Blood Urea Nitrogen 39 mg/dL (8-23); Calcium 8.2 mg/dL (8.6-10.3); Carbon Dioxide 27 mEq/L (23-29); Chloride 102 mEq/L (98-107); Glucose 100 mg/dL (70-105); Magnesium 2.3 mg/dL (1.6-2.6); Osmolality,Calculated 287 (280-300); Potassium 4.6 mEq/L (3.5-5.1); Sodium 134 mEq/L (136-145); eGFR For African Americans > 60 (> 60); eGFR For Non-African Americans > 60 (> 60)
[2021-03-19] MEDS: *HR* Enoxaparin 40 MG/0.4 ML SYRINGE SQ SCH (05:50)
[2021-03-19] MEDS: Pantoprazole 40 MG VIAL IVP SCH (10:12)
[2021-03-19] MEDS: Dexamethasone Sodium Phos/PF 10 MG/ML VIAL IVP SCH (10:13)
[2021-03-19] MEDS: Artificial Tears SOLN 15 ML BOTTLE BOTH EYES SCH ×4 (10:14→20:02)
[2021-03-19] MEDS: Furosemide 40 MG/4 ML VIAL IVP SCH (10:14)
[2021-03-19] MEDS: Acetaminophen 325 MG TABLET PO PRN (11:41)
[2021-03-20] MEDS: Melatonin 3 MG TABLET PO SCH ×2 (00:03→21:34)
[2021-03-20] MEDS: Acetaminophen 325 MG TABLET PO PRN ×2 (03:02→08:33)
[2021-03-20] MEDS: Ipratropium 1 PUFF INHALER IH SCH ×6 (04:36→23:35)
[2021-03-20] MEDS: *HR* Enoxaparin 40 MG/0.4 ML SYRINGE SQ SCH (05:40)
[2021-03-20] MEDS: Pantoprazole 40 MG VIAL IVP SCH (08:34)
[2021-03-20] MEDS: Dexamethasone Sodium Phos/PF 10 MG/ML VIAL IVP SCH (08:34)
[2021-03-20] MEDS: Furosemide 40 MG/4 ML VIAL IVP SCH (08:34)
[2021-03-20] MEDS: Artificial Tears SOLN 15 ML BOTTLE BOTH EYES SCH ×4 (08:34→21:34)
[2021-03-21] MEDS: Ipratropium 1 PUFF INHALER IH SCH ×6 (03:56→23:59)
[2021-03-21] MEDS: *HR* Enoxaparin 40 MG/0.4 ML SYRINGE SQ SCH (06:21)
[2021-03-21 06:51] LABS: Hematocrit 40.4 % (37.5-50.1); Hemoglobin 12.8 g/dL (12.9-16.9); Mean Corpuscular HGB Conc 31.7 g/dL (31.6-35.5); Mean Corpuscular Hemoglobin 28.1 pg (28.0-33.3); Mean Corpuscular Volume 88.8 fL (83.0-100.0); Mean Platelet Volume 10.9 fL (9.4-12.4); Platelet Count 216 K/mcL (140-400); Red Blood Count 4.55 M/mcL (4.19-5.50); White Blood Count 15.2 K/mcL (4.3-11.1)
[2021-03-21 07:08] LABS: BUN/Creatinine Ratio 48 (6-26); Blood Urea Nitrogen 43 mg/dL (8-23); Calcium 8.7 mg/dL (8.6-10.3); Carbon Dioxide 30 mEq/L (23-29); Chloride 103 mEq/L (98-107); Glucose 84 mg/dL (70-105); Magnesium 2.3 mg/dL (1.6-2.6); Osmolality,Calculated 294 (280-300); Phosphorous 3.5 mg/dL (2.7-4.5); Potassium 4.6 mEq/L (3.5-5.1); Sodium 137 mEq/L (136-145); eGFR For African Americans > 60 (> 60); eGFR For Non-African Americans > 60 (> 60)
[2021-03-21] MEDS: Pantoprazole 40 MG VIAL IVP SCH (07:53)
[2021-03-21] MEDS: Furosemide 40 MG/4 ML VIAL IVP SCH (07:53)
[2021-03-21] MEDS: Dexmedetomidine HCl 400 MCG/100 ML MLS IVC SCH (07:54)
[2021-03-21] MEDS: Artificial Tears SOLN 15 ML BOTTLE BOTH EYES SCH ×4 (07:54→20:16)
[2021-03-21] MEDS: Dexamethasone Sodium Phos/PF 10 MG/ML VIAL IVP SCH (08:01)
[2021-03-21] MEDS: Acetaminophen 325 MG TABLET PO PRN (18:43)
[2021-03-21] MEDS: Melatonin 3 MG TABLET PO SCH (20:16)
[2021-03-22] MEDS: Ipratropium 1 PUFF INHALER IH SCH ×5 (03:42→21:25)
[2021-03-22 04:43] LABS: Basophils % 0.1 %; Eosinophils # 0.1 K/mcL (0.0-0.6); Eosinophils % 0.5 %; Hematocrit 37.6 % (37.5-50.1); Hemoglobin 11.7 g/dL (12.9-16.9); Immature Granulocytes % 2.2 % (0-4); Lymphocytes # 0.7 K/mcL (0.6-4.6); Mean Corpuscular HGB Conc 31.1 g/dL (31.6-35.5); Mean Corpuscular Hemoglobin 27.4 pg (28.0-33.3); Mean Corpuscular Volume 88.1 fL (83.0-100.0); Mean Platelet Volume 11.1 fL (9.4-12.4); Monocytes # 1.1 K/mcL (0.0-1.3); Monocytes % 7.2 %; Neutrophils # 12.5 K/mcL (1.6-8.9); Platelet Count 187 K/mcL (140-400); Red Blood Count 4.27 M/mcL (4.19-5.50); Red Cell Distribution Width 13.9 % (11.5-14.5); White Blood Count 14.8 K/mcL (4.3-11.1)
[2021-03-22 05:08] LABS: Alanine Aminotransferase 30 Units/L (7-52); Albumin 2.9 g/dL (3.5-5.7); Albumin/Globulin Ratio 1.3 (1.1-2.2); Alkaline Phosphatase 76 Units/L (34-104); Aspartate Amino Transferase 27 Units/L (13-39); BUN/Creatinine Ratio 52 (6-26); Bilirubin,Total 0.7 mg/dL (0.3-1.0); Blood Urea Nitrogen 44 mg/dL (8-23); C-Reactive Protein 11 mg/L (Less than 10); Calcium 7.9 mg/dL (8.6-10.3); Carbon Dioxide 30 mEq/L (23-29); Chloride 102 mEq/L (98-107); Globulin 2.3 g/dL (2.4-3.5); Glucose 75 mg/dL (70-105); Lactate Dehydrogenase 335 Units/L (140-271); Magnesium 2.1 mg/dL (1.6-2.6); Osmolality,Calculated 292 (280-300); Potassium 4.4 mEq/L (3.5-5.1); Sodium 136 mEq/L (136-145); Total Protein 5.2 g/dL (6.4-8.9); eGFR For African Americans > 60 (> 60); eGFR For Non-African Americans > 60 (> 60)
[2021-03-22 05:23] LABS: Ferritin 83 ng/mL (20-250)
[2021-03-22] MEDS: *HR* Enoxaparin 40 MG/0.4 ML SYRINGE SQ SCH (05:34)
[2021-03-22] MEDS ORDERED: Isovue-370 500 ML BOTTLE IVP ONE (08:04)
[2021-03-22] MEDS: Acetaminophen 325 MG TABLET PO PRN (08:21)
[2021-03-22] MEDS: Furosemide 40 MG/4 ML VIAL IVP SCH (09:05)
[2021-03-22] MEDS: Aspirin 81 MG TAB.CHEW PO SCH (09:06)
[2021-03-22] MEDS: Pantoprazole 40 MG VIAL IVP SCH (09:06)
[2021-03-22] MEDS: Dexamethasone Sodium Phos/PF 10 MG/ML VIAL IVP SCH (09:06)
[2021-03-22] MEDS: Artificial Tears SOLN 15 ML BOTTLE BOTH EYES SCH ×4 (09:06→21:02)
[2021-03-22] MEDS: Dexmedetomidine HCl 400 MCG/100 ML MLS IVC SCH (09:07)
[2021-03-22] MEDS ORDERED: *HR* Heparin 5,000 UNIT/ML VIAL IVP PRN ×2 (09:53)
[2021-03-22] MEDS ORDERED: *HR* Heparin 5,000 UNIT/ML VIAL IVP ONE (09:53)
[2021-03-22 10:53] LABS: Hematocrit 40.5 % (37.5-50.1); Hemoglobin 12.4 g/dL (12.9-16.9); Mean Corpuscular HGB Conc 30.6 g/dL (31.6-35.5); Mean Platelet Volume 10.6 fL (9.4-12.4); Platelet Count 189 K/mcL (140-400); White Blood Count 16.6 K/mcL (4.3-11.1)
[2021-03-22 10:59] LABS: INR 1.2; Prothrombin Time 13.9 Seconds (9.4-12.1)
[2021-03-22 11:00] LABS: Heparin anti-factor XA UFH 0.3 IU/mL (0.30-0.70)
[2021-03-22] MEDS: Heparin 25,000UNIT/250ML 1/2NS 25,000 UNIT/250 ML IV.SOLN IVC SCH (12:43)
[2021-03-22] MEDS: Melatonin 3 MG TABLET PO SCH (21:03)
[2021-03-23] MEDS: Ipratropium 1 PUFF INHALER IH SCH ×7 (00:58→23:32)
[2021-03-23] MEDS: Acetaminophen 325 MG TABLET PO PRN ×2 (05:37→20:09)
[2021-03-23 06:22] LABS: Basophils % 0.2 %; Eosinophils # 0.1 K/mcL (0.0-0.6); Eosinophils % 0.9 %; Hematocrit 36.4 % (37.5-50.1); Hemoglobin 11.6 g/dL (12.9-16.9); Immature Granulocytes % 2.1 % (0-4); Lymphocytes # 1.1 K/mcL (0.6-4.6); Lymphocytes % 7.6 %; Mean Corpuscular HGB Conc 31.9 g/dL (31.6-35.5); Mean Corpuscular Hemoglobin 28.3 pg (28.0-33.3); Mean Corpuscular Volume 88.8 fL (83.0-100.0); Mean Platelet Volume 10.7 fL (9.4-12.4); Monocytes # 0.9 K/mcL (0.0-1.3); Monocytes % 6.1 %; Neutrophils # 12.3 K/mcL (1.6-8.9); Platelet Count 204 K/mcL (140-400); Segmented Neutrophils % 83.1 %; White Blood Count 14.7 K/mcL (4.3-11.1)
[2021-03-23 06:41] LABS: BUN/Creatinine Ratio 52 (6-26); Blood Urea Nitrogen 43 mg/dL (8-23); Calcium 8.3 mg/dL (8.6-10.3); Carbon Dioxide 30 mEq/L (23-29); Chloride 105 mEq/L (98-107); Glucose 87 mg/dL (70-105); Osmolality,Calculated 296 (280-300); Potassium 4.3 mEq/L (3.5-5.1); Sodium 138 mEq/L (136-145); eGFR For African Americans > 60 (> 60); eGFR For Non-African Americans > 60 (> 60)
[2021-03-23] MEDS: Pantoprazole 40 MG VIAL IVP SCH (09:40)
[2021-03-23] MEDS: Furosemide 40 MG/4 ML VIAL IVP SCH (09:40)
[2021-03-23] MEDS: Dexamethasone Sodium Phos/PF 10 MG/ML VIAL IVP SCH (09:40)
[2021-03-23] MEDS: Artificial Tears SOLN 15 ML BOTTLE BOTH EYES SCH ×4 (09:41→20:48)
[2021-03-23] MEDS: Heparin 25,000UNIT/250ML 1/2NS 25,000 UNIT/250 ML IV.SOLN IVC SCH (09:41)
[2021-03-23] MEDS: Aspirin 81 MG TAB.CHEW PO SCH (09:41)
[2021-03-23] MEDS: Dexmedetomidine HCl 400 MCG/100 ML MLS IVC SCH ×2 (09:42→14:41)
[2021-03-23] MEDS: Melatonin 3 MG TABLET PO SCH (20:48)
[2021-03-24] MEDS: Ipratropium 1 PUFF INHALER IH SCH ×6 (03:34→23:27)
[2021-03-24 04:56] LABS: Basophils % 0.2 %; Eosinophils # 0.1 K/mcL (0.0-0.6); Eosinophils % 0.4 %; Hematocrit 36.2 % (37.5-50.1); Hemoglobin 11.2 g/dL (12.9-16.9); Immature Granulocytes % 2.1 % (0-4); Lymphocytes # 1.2 K/mcL (0.6-4.6); Lymphocytes % 6.8 %; Mean Corpuscular HGB Conc 30.9 g/dL (31.6-35.5); Mean Corpuscular Hemoglobin 27.3 pg (28.0-33.3); Mean Corpuscular Volume 88.1 fL (83.0-100.0); Mean Platelet Volume 10.9 fL (9.4-12.4); Monocytes % 6.1 %; Neutrophils # 14.4 K/mcL (1.6-8.9); Platelet Count 195 K/mcL (140-400); Red Blood Count 4.11 M/mcL (4.19-5.50); Red Cell Distribution Width 13.9 % (11.5-14.5); Segmented Neutrophils % 84.4 %
[2021-03-24 05:16] LABS: Alanine Aminotransferase 36 Units/L (7-52); Albumin/Globulin Ratio 1.6 (1.1-2.2); Alkaline Phosphatase 71 Units/L (34-104); Aspartate Amino Transferase 23 Units/L (13-39); BUN/Creatinine Ratio 51 (6-26); Bilirubin,Total 0.6 mg/dL (0.3-1.0); Blood Urea Nitrogen 39 mg/dL (8-23); Calcium 8.2 mg/dL (8.6-10.3); Carbon Dioxide 29 mEq/L (23-29); Chloride 104 mEq/L (98-107); Globulin 1.9 g/dL (2.4-3.5); Glucose 88 mg/dL (70-105); Osmolality,Calculated 293 (280-300); Potassium 4.1 mEq/L (3.5-5.1); Sodium 137 mEq/L (136-145); Total Protein 4.9 g/dL (6.4-8.9); eGFR For African Americans > 60 (> 60); eGFR For Non-African Americans > 60 (> 60)
[2021-03-24] MEDS: Aspirin 81 MG TAB.CHEW PO SCH (08:21)
[2021-03-24] MEDS: Pantoprazole 40 MG VIAL IVP SCH (08:21)
[2021-03-24] MEDS: Heparin 25,000UNIT/250ML 1/2NS 25,000 UNIT/250 ML IV.SOLN IVC SCH (08:22)
[2021-03-24] MEDS: Furosemide 40 MG/4 ML VIAL IVP SCH (08:22)
[2021-03-24] MEDS: Artificial Tears SOLN 15 ML BOTTLE BOTH EYES SCH ×4 (08:44→20:16)
[2021-03-24] MEDS: Dexmedetomidine HCl 400 MCG/100 ML MLS IVC SCH (12:22)
[2021-03-24] MEDS: Acetaminophen 325 MG TABLET PO PRN ×2 (13:53→20:16)
[2021-03-24] MEDS: Melatonin 3 MG TABLET PO SCH (20:16)
[2021-03-25] MEDS: Ipratropium 1 PUFF INHALER IH SCH ×6 (03:25→23:34)
[2021-03-25 05:47] LABS: Basophils % 0.3 %; Eosinophils # 0.2 K/mcL (0.0-0.6); Eosinophils % 1.8 %; Hematocrit 36.6 % (37.5-50.1); Hemoglobin 11.2 g/dL (12.9-16.9); Immature Granulocytes % 2.9 % (0-4); Lymphocytes % 9.4 %; Mean Corpuscular HGB Conc 30.6 g/dL (31.6-35.5); Mean Corpuscular Hemoglobin 27.5 pg (28.0-33.3); Mean Corpuscular Volume 89.9 fL (83.0-100.0); Mean Platelet Volume 10.6 fL (9.4-12.4); Monocytes # 0.7 K/mcL (0.0-1.3); Monocytes % 6.1 %; Neutrophils # 8.6 K/mcL (1.6-8.9); Platelet Count 186 K/mcL (140-400); Red Blood Count 4.07 M/mcL (4.19-5.50); Red Cell Distribution Width 14.2 % (11.5-14.5); Segmented Neutrophils % 79.5 %; White Blood Count 10.8 K/mcL (4.3-11.1)
[2021-03-25 06:04] LABS: BUN/Creatinine Ratio 41 (6-26); Blood Urea Nitrogen 35 mg/dL (8-23); Carbon Dioxide 28 mEq/L (23-29); Chloride 106 mEq/L (98-107); Glucose 97 mg/dL (70-105); Osmolality,Calculated 296 (280-300); Sodium 139 mEq/L (136-145); eGFR For African Americans > 60 (> 60); eGFR For Non-African Americans > 60 (> 60)
[2021-03-25] MEDS: Aspirin 81 MG TAB.CHEW PO SCH (09:22)
[2021-03-25] MEDS: Furosemide 40 MG/4 ML VIAL IVP SCH (09:22)
[2021-03-25] MEDS: Pantoprazole 40 MG VIAL IVP SCH (09:23)
[2021-03-25] MEDS: Artificial Tears SOLN 15 ML BOTTLE BOTH EYES SCH ×4 (09:23→20:12)
[2021-03-25] MEDS: Heparin 25,000UNIT/250ML 1/2NS 25,000 UNIT/250 ML IV.SOLN IVC SCH ×2 (09:55→11:53)
[2021-03-25] MEDS: Dexmedetomidine HCl 400 MCG/100 ML MLS IVC SCH (09:56)
[2021-03-25] MEDS: Acetaminophen 325 MG TABLET PO PRN (17:07)
[2021-03-25] MEDS: Melatonin 3 MG TABLET PO SCH (20:11)
[2021-03-25] MEDS: Apixaban 5 MG TABLET PO SCH (20:11)
[2021-03-25] MEDS ORDERED: Ipratropium 1 PUFF INHALER IH PRN (23:37)
[2021-03-26 01:55] LABS: Basophils % 0.2 %; Eosinophils # 0.2 K/mcL (0.0-0.6); Eosinophils % 1.4 %; Hematocrit 39.1 % (37.5-50.1); Hemoglobin 12.1 g/dL (12.9-16.9); Immature Granulocytes % 1.8 % (0-4); Lymphocytes # 0.9 K/mcL (0.6-4.6); Lymphocytes % 8.4 %; Mean Corpuscular HGB Conc 30.9 g/dL (31.6-35.5); Mean Corpuscular Hemoglobin 27.4 pg (28.0-33.3); Mean Corpuscular Volume 88.7 fL (83.0-100.0); Mean Platelet Volume 10.5 fL (9.4-12.4); Monocytes # 0.6 K/mcL (0.0-1.3); Neutrophils # 9.3 K/mcL (1.6-8.9); Platelet Count 192 K/mcL (140-400); Red Blood Count 4.41 M/mcL (4.19-5.50); Red Cell Distribution Width 14.2 % (11.5-14.5); Segmented Neutrophils % 83.2 %; White Blood Count 11.1 K/mcL (4.3-11.1)
[2021-03-26 02:18] LABS: BUN/Creatinine Ratio 39 (6-26); Blood Urea Nitrogen 34 mg/dL (8-23); Calcium 8.3 mg/dL (8.6-10.3); Carbon Dioxide 28 mEq/L (23-29); Chloride 105 mEq/L (98-107); Glucose 115 mg/dL (70-105); Osmolality,Calculated 295 (280-300); Sodium 138 mEq/L (136-145); eGFR For African Americans > 60 (> 60); eGFR For Non-African Americans > 60 (> 60)
[2021-03-26] MEDS: Pantoprazole 40 MG VIAL IVP SCH (10:04)
[2021-03-26] MEDS: Apixaban 5 MG TABLET PO SCH ×2 (10:05→20:30)
[2021-03-26] MEDS: Furosemide 40 MG/4 ML VIAL IVP SCH ×2 (10:05→16:56)
[2021-03-26] MEDS: Aspirin 81 MG TAB.CHEW PO SCH (10:05)
[2021-03-26] MEDS: Acetaminophen 325 MG TABLET PO PRN ×2 (10:05→16:56)
[2021-03-26] MEDS: Dexmedetomidine HCl 400 MCG/100 ML MLS IVC SCH (10:06)
[2021-03-26] MEDS: Artificial Tears SOLN 15 ML BOTTLE BOTH EYES SCH ×3 (10:06→16:55)
[2021-03-26] MEDS: Melatonin 3 MG TABLET PO SCH (20:31)
[2021-03-27] MEDS: Artificial Tears SOLN 15 ML BOTTLE BOTH EYES SCH ×5 (03:30→22:55)
[2021-03-27] MEDS: Apixaban 5 MG TABLET PO SCH ×2 (10:11→22:52)
[2021-03-27] MEDS: Pantoprazole 40 MG VIAL IVP SCH (10:12)
[2021-03-27] MEDS: Furosemide 40 MG/4 ML VIAL IVP SCH ×2 (10:12→18:37)
[2021-03-27] MEDS: Aspirin 81 MG TAB.CHEW PO SCH (10:12)
[2021-03-27] MEDS: Acetaminophen 325 MG TABLET PO PRN (13:55)
[2021-03-27] MEDS: Dexmedetomidine HCl 400 MCG/100 ML MLS IVC SCH (15:55)
[2021-03-27] MEDS: Melatonin 3 MG TABLET PO SCH (22:52)
[2021-03-28 08:06] LABS: Basophils % 0.1 %; Eosinophils # 0.2 K/mcL (0.0-0.6); Eosinophils % 2.1 %; Hematocrit 35.8 % (37.5-50.1); Hemoglobin 11.5 g/dL (12.9-16.9); Immature Granulocytes % 1.9 % (0-4); Lymphocytes # 0.9 K/mcL (0.6-4.6); Lymphocytes % 11.4 %; Mean Corpuscular HGB Conc 32.1 g/dL (31.6-35.5); Mean Corpuscular Hemoglobin 28.5 pg (28.0-33.3); Mean Corpuscular Volume 88.6 fL (83.0-100.0); Mean Platelet Volume 10.6 fL (9.4-12.4); Monocytes # 0.6 K/mcL (0.0-1.3); Monocytes % 7.2 %; Neutrophils # 6.2 K/mcL (1.6-8.9); Platelet Count 174 K/mcL (140-400); Red Blood Count 4.04 M/mcL (4.19-5.50); Red Cell Distribution Width 14.5 % (11.5-14.5); Segmented Neutrophils % 77.3 %; White Blood Count 8.1 K/mcL (4.3-11.1)
[2021-03-28] MEDS: Pantoprazole 40 MG VIAL IVP SCH (08:22)
[2021-03-28] MEDS: Aspirin 81 MG TAB.CHEW PO SCH (08:22)
[2021-03-28] MEDS: Apixaban 5 MG TABLET PO SCH (08:22)
[2021-03-28] MEDS: Furosemide 40 MG/4 ML VIAL IVP SCH (08:22)
[2021-03-28] MEDS: Artificial Tears SOLN 15 ML BOTTLE BOTH EYES SCH ×2 (08:23→13:50)
[2021-03-28 09:21] LABS: BUN/Creatinine Ratio 40 (6-26); Blood Urea Nitrogen 35 mg/dL (8-23); Calcium 8.5 mg/dL (8.6-10.3); Carbon Dioxide 28 mEq/L (23-29); Chloride 105 mEq/L (98-107); Glucose 104 mg/dL (70-105); Osmolality,Calculated 296 (280-300); Potassium 3.9 mEq/L (3.5-5.1); Sodium 139 mEq/L (136-145); eGFR For African Americans > 60 (> 60); eGFR For Non-African Americans > 60 (> 60)
[2021-03-28] MEDS: Dexmedetomidine HCl 400 MCG/100 ML MLS IVC SCH (10:46)
[2021-03-28 15:40] VITALS: BP 105/73; PULSE 65; TEMP 98.5; O2SAT 95
== END 2021-03-28 17:10 | disposition home health service (06) | DRG 871 ==
LOC: 3NENU → SUATTDRO 03-09 00:36
PROVIDERS: ADMIT Internal Medicine; ATTEND Family Medicine

== ENCOUNTER 2021-11-16 09:55 | Inpatient (IN) ==
[2021-11-16] MEDS ORDERED: cefOXitin 2,000 MG in 0.9 % Sodium Chloride 20 ML IVP ONE (10:24)
[2021-11-16] MEDS ORDERED: Ringers Solution, Lactated 1,000 ML IVC SCH (10:30)
[2021-11-16] MEDS ORDERED: Promethazine 6.25 MG in Water for inj. (sterile) 20 ML IVPB PRN (10:39)
[2021-11-16] MEDS ORDERED: Ondansetron 4 MG/2 ML VIAL IVP PRN ×2 (10:39→17:05)
[2021-11-16] MEDS ORDERED: *HR* HYDROmorphone PF 0.5 MG/0.5 ML SYRINGE IVP PRN (10:39)
[2021-11-16] MEDS ORDERED: *HR* OxyCODONE Immed Rel 5 MG TABLET PO PRN (10:39)
[2021-11-16] MEDS ORDERED: Lidocaine -MPF 4% 5 ML AMPUL ONE (11:39)
[2021-11-16] MEDS ORDERED: Ondansetron 4 MG/2 ML VIAL ONE (11:45)
[2021-11-16] MEDS ORDERED: *HR* FentaNYL (PF) 100 MCG/2 ML VIAL ONE ×3 (11:45→15:26)
[2021-11-16] MEDS ORDERED: *HR* Propofol 200 MG/20 ML VIAL IVP ONE (11:45)
[2021-11-16] MEDS ORDERED: *HR* Succinylcholine 200 MG/10 ML VIAL IVP ONE (11:45)
[2021-11-16] MEDS ORDERED: Lidocaine -MPF 2% 2 ML VIAL ONE (11:48)
[2021-11-16] MEDS ORDERED: EPHEDrine sulfate 50 MG/10 ML VIAL IVP ONE (12:55)
[2021-11-16] MEDS ORDERED: Albumin Human 5% 25.0 GM/500 ML IV.SOLN ONE (14:30)
[2021-11-16] MEDS ORDERED: *HR* LORazepam 2 MG/ML VIAL IVP PRN (17:05)
[2021-11-16] MEDS ORDERED: Morphine Sulfate Oral CONC 10 MG/0.5 ML ORAL.SYG SL PRN (17:05)
[2021-11-16] MEDS ORDERED: Naloxone 0.4 MG/ML INJ IVP PRN (17:05)
[2021-11-16] MEDS: Acetaminophen 325 MG TABLET PO SCH ×2 (18:09→23:30)
[2021-11-16] MEDS: cefOXitin 1,000 MG in 0.9 % Sodium Chloride 10 ML IVP SCH (21:11)
[2021-11-16] MEDS: *HR* OxyCODONE Immed Rel 5 MG TABLET PO PRN (21:24)
[2021-11-16] MEDS: 0.9 % Sodium Chloride 1,000 ML IVC SCH (21:24)
[2021-11-17] MEDS: cefOXitin 1,000 MG in 0.9 % Sodium Chloride 10 ML IVP SCH ×2 (03:33→12:48)
[2021-11-17] MEDS: Acetaminophen 325 MG TABLET PO SCH ×4 (05:31→23:46)
[2021-11-17 06:28] LABS: Hematocrit 29.2 % (37.5-50.1); Hemoglobin 9.2 g/dL (12.9-16.9); Immature Granulocytes % 0.3 % (0-4); Lymphocytes # 0.5 K/mcL (0.6-4.6); Lymphocytes % 5.4 %; Mean Corpuscular HGB Conc 31.5 g/dL (31.6-35.5); Mean Corpuscular Hemoglobin 27.8 pg (28.0-33.3); Mean Corpuscular Volume 88.2 fL (83.0-100.0); Mean Platelet Volume 10.2 fL (9.4-12.4); Monocytes # 0.6 K/mcL (0.0-1.3); Monocytes % 6.6 %; Platelet Count 200 K/mcL (140-400); Red Blood Count 3.31 M/mcL (4.19-5.50); Red Cell Distribution Width 14.6 % (11.5-14.5); Segmented Neutrophils % 87.7 %; White Blood Count 9.1 K/mcL (4.3-11.1)
[2021-11-17 06:46] LABS: BUN/Creatinine Ratio 16 (6-26); Blood Urea Nitrogen 14 mg/dL (8-23); Carbon Dioxide 23 mEq/L (23-29); Chloride 112 mEq/L (98-107); Glucose 122 mg/dL (70-105); Osmolality,Calculated 290 (280-300); Potassium 4.4 mEq/L (3.5-5.1); Sodium 139 mEq/L (136-145)
[2021-11-17] MEDS: 0.9 % Sodium Chloride 1,000 ML IVC SCH ×2 (10:44→23:47)
[2021-11-17] MEDS: *HR* Heparin 5,000 UNIT/ML VIAL SQ SCH (14:50)
[2021-11-17] MEDS: *HR* OxyCODONE Immed Rel 5 MG TABLET PO PRN (23:46)
[2021-11-18] MEDS: *HR* Heparin 5,000 UNIT/ML VIAL SQ SCH ×2 (05:31→17:00)
[2021-11-18] MEDS: Acetaminophen 325 MG TABLET PO SCH ×3 (05:31→17:00)
[2021-11-18] MEDS: 0.9 % Sodium Chloride 1,000 ML IVC SCH (11:35)
[2021-11-18] MEDS: *HR* OxyCODONE Immed Rel 5 MG TABLET PO PRN (17:06)
[2021-11-19] MEDS: 0.9 % Sodium Chloride 1,000 ML IVC SCH (00:09)
[2021-11-19] MEDS: Acetaminophen 325 MG TABLET PO SCH ×2 (00:15→06:07)
[2021-11-19 05:13] VITALS: TEMP 98.2
[2021-11-19] MEDS: *HR* Heparin 5,000 UNIT/ML VIAL SQ SCH (06:04)
[2021-11-19 06:36] VITALS: BP 172/78; PULSE 56; O2SAT 94
== END 2021-11-19 13:16 | disposition home or self-care (01) | DRG 330 ==
LOC: SAMDAY 09:55 → 3ANU 16:40
PROVIDERS: ADMIT Surgery; ATTEND Surgery